=== PATIENT | male | born 1925 | race Caucasian/White ===

== ENCOUNTER 2017-01-24 08:33 | Emergency (ER) | payer OTHER ==
[~2017-01-24] VITALS: Ht 177.8 cm; Wt 68.3 kg
[2017-01-24 08:33] VITALS: TEMP 36.4; Ht 177.8 cm; Wt 68.3 kg
[~2017-01-24 08:33] MED LIST: ASPI81TA21 PO; CIPR-255 PO; CLC100X PO; DBT/25 PO; DIVA125C PO; DONE10TA12 PO; GLY/5 PO; HYDR-389 PO; LANS30CA63 PO; MEDR150I IM; MEMA10TA PO; POLY335040 PO; SODIENE PR; TRAM-453 PO; TRAZ1TAB8 PO; TYLOTC500 PO
[2017-01-24] MEDS ORDERED: POTA10CA28 PO (09:11)
[2017-01-24] MEDS ORDERED: INSU100I SQ (09:11)
[2017-01-24] MEDS ORDERED: INSDGI SC (09:11)
[2017-01-24] MEDS ORDERED: PRLSR20 PO (09:11)
[2017-01-24] MEDS ORDERED: MELATAB2 PO (09:11)
[2017-01-24] MEDS ORDERED: [UNRECOGNIZED DRUG - CODE] PO (09:11)
[2017-01-24] MEDS ORDERED: [UNRECOGNIZED DRUG - CODE] TOP (09:11)
[2017-01-24] MEDS ORDERED: TRAZ50TA35 PO (09:11)
[2017-01-24] MEDS ORDERED: SENN-61 PO (09:11)
--- NOTE | 2017-01-24 10:17 | DIAGNOSTIC IMAGING REPORT ---
CHEST ONE VIEW PORTABLE CLINICAL HISTORY: Fall. COMPARISON STUDY: Radiograph June 23, 2012. FINDINGS: There is no pneumothorax or pleural effusion. Lung volumes are diminished. This is unchanged. Mild motion artifact is noted. There is no lobar consolidation. A metallic density projects over the left upper chest. This is unchanged. IMPRESSION: No acute cardiopulmonary findings. Electronically signed by: Noel Rowland M.D. 01/24/2017 10:15 AM Dictated Date/Time: 01/24/2017 10:14 AM
[2017-01-24 10:26] LABS: BASO % 0.3 %; BASO ABS # 0.03 K/uL (0-0.2); COMPLETE YES; EOS % 0.5 %; HEMATOCRIT 47.5 % (42-52); IG% 0.3 %; LYMPH % 12.9 %; MEAN CELL VOLUME 91.9 fL (80-100); MEAN CORPUSCULAR HEMOGLOBIN 28.8 pg (25-34); MEAN CORPUSCULAR HGB CONC 31.4 g/dl (32-36); MEAN PLATELET VOLUME 10.1 fL (7.4-10.4); MONO % 5.9 %; NEUT % 80.1 %; PLATELET COUNT 256 K/uL (130-400); RED BLOOD COUNT 5.17 M/uL (4.7-6.1); WHITE BLOOD COUNT 11.61 K/uL (4.8-10.8)
[2017-01-24 10:27] LABS: URINE APPEARANCE CLEAR (CLEAR); URINE BILIRUBIN NEG (NEG); URINE COLOR YELLOW; URINE EPITHELIAL CELL AUTO 0-5 /lpf (0-5); URINE NITRITE NEG (NEG); URINE SPECIFIC GRAVITY 1.012 (1.000-1.030); UROBILINOGEN NEG (NEG)
[2017-01-24 10:28] LABS: MANUAL MICROSCOPIC REQUIRED? NO; REVIEW REQ? NO
[2017-01-24 10:44] LABS: ALT/SGPT 23 U/L (12-78); AST/SGOT 43 U/L (15-37); BLOOD UREA NITROGEN 30 mg/dl (7-18); BUN/CREATININE RATIO 22.7 (10-20); CALCIUM 9.3 mg/dl (8.5-10.1); CARBON DIOXIDE 26 mmol/L (21-32); CHLORIDE 107 mmol/L (98-107); GLUCOSE 141 mg/dl (70-99); POTASSIUM 4.7 mmol/L (3.5-5.1); SODIUM 140 mmol/L (136-145)
[2017-01-24 10:47] LABS: ALKALINE PHOSPHATASE 88 U/L (45-117)
--- NOTE | 2017-01-24 12:07 | DIAGNOSTIC IMAGING REPORT ---
CT SCAN OF THE BRAIN WITHOUT IV CONTRAST CLINICAL HISTORY: Fall. COMPARISON STUDY: CT the brain dated 06/23/12. TECHNIQUE: Unenhanced axial CT scan of the brain is performed from the vertex to the skull base. CT DOSE: 614.27 mGy.cm FINDINGS: Brain parenchyma: There are age-related involutional changes noting moderate subcortical and periventricular microangiopathic change. There is no hemorrhage, mass effect, or evidence of acute territorial ischemia by CT criteria. A chronic lacunar infarct is noted in the right thalamus. Koehler-white matter is preserved. No extra-axial fluid collection is seen. Ventricles, sulci, cisterns: Prominent secondary to involutional change. Intracranial vasculature: There is atherosclerotic calcification of the cavernous carotid and vertebral arteries. Calvarium: The skeletal structures are osteopenic. There is no depressed calvarial fracture. Sinuses and mastoids: Moderate mucosal thickening is seen within the maxillary antra. Mild mucosal thickening is seen in the left frontal and ethmoid sinuses. The mastoid air cells are underpneumatized. Orbits: The bony orbits are grossly intact. There are bilateral ocular lens implants. IMPRESSION: Senescent changes as above no hemorrhage, mass effect, or evidence of acute territorial ischemia by CT criteria. Electronically signed by: Anthony Li M.D. 01/24/2017 10:28 AM Dictated Date/Time: 01/24/2017 10:26 AM
[2017-01-24 13:45] VITALS: BP 125/83; PULSE 82; O2SAT 98
--- NOTE | 2017-01-24 15:14 | EMERGENCY ROOM VISIT NOTE ---
History Report prepared by Leobardo: Em Garcia Under the Supervision of: Dr. Lonny Farias D.O. First contact with patient: 09:33 Chief Complaint: OTHER COMPLAINT History of Present Illness The patient is a 89 year old male who presents to the Emergency Room with complaints of constant weakness beginning FLAKER TENDER. The patient is a resident at [facility]. Per staff, the patient is non-verbal at baseline. He required two people to help him out of bed this morning instead of the usual one person. Staff also reports a fall occurring yesterday. The patient acted normally after the incident. He has had rhinorrhea for the past 24 hours but has been afebrile with a T-max of 99.2. The HPI is limited secondary to the patient's mental status. Source of History: detention notes History Limited By: AMS Onset: FLAKER TENDER Position: other (global) Quality: other (weakness) Timing: constant Associated Symptoms: No fevers Review of Systems ROS is limited secondary to the patient's mental status. Past Medical & Surgical Medical Problems: (1) Benign hypertension (2) Diabetes mellitus (3) Heart disease (4) Ulcer Family History Non-pertinent due to advanced age. Social History Smoking Status: Unknown if Ever Smoked Alcohol Use: none Housing Status: detention Occupation Status: retired Current/Historical Medications Scheduled Acetaminophen (Tylenol), 500-1,000 MG PO Q6HR PRN Aspirin Enteric Coated (Ecotrin Or Generic), 81 MG PO DAILY Donepezil Hydrochloride (Aricept), 10 MG PO HS Insulin Glargine (Lantus), 28 UNITS SC HS Insulin Lispro (Human) (Humalog), 1 DOSE SQ UD Melatonin (Melatonin Maximum Strengt), 5 MG PO HS Memantine (Namenda), 5 ML PO BID Menthol-Zinc Oxide (Caladrox 0.44-20 %), 1 APPLN TOP DAILY Omeprazole (Prilosec), 20 MG PO DAILY Potassium Chloride (Micro-K Ext Rel), 10 MEQ PO DAILY Trazodone Hcl (Trazodone), 25 MG PO HS Miscellaneous Medications Senna (Senokot), 1 TAB PO Allergies Coded Allergies: Haloperidol (Verified Allergy, Unknown, unknown, 01/24/17) [place] Physical Exam Vital Signs Date Time Temp Pulse Resp B/P (MAP) Pulse Ox O2 Delivery O2 Flow Rate FiO2 9/5/17 13:45 82 20 125/83 98 Room Air 01/24/17 10:37 51 12 128/64 97 Room Air 01/24/17 08:58 56 01/24/17 08:33 36.4 67 18 173/92 96 Room Air Physical Exam GENERAL: alert, sitting up in bed, disheveled, chronically ill appearing, no distress HEAD: NC/AT. EYE EXAM: normal conjunctiva, PERRL and EOM's grossly intact OROPHARYNX: no exudate, no erythema, lips, buccal mucosa, and tongue normal and mucous membranes are moist NECK: supple, no nuchal rigidity, no adenopathy, non-tender LUNGS: Clear to auscultation. Normal chest wall mechanics HEART: no murmurs, S1 normal and S2 normal ABDOMEN: abdomen soft, non-tender, normo-active bowel sounds, no masses, no rebound or guarding. SKIN: no rashes and no bruising UPPER EXTREMITIES: upper extremities are grossly normal. LOWER EXTREMITIES: No pitting edema. NEURO EXAM: Alert, mumbles, does not follow commands, cranial nerves II-XII grossly intact. Moves upper extremities with mild tremors, equal strength in lower extremities. Medical Decision & Procedures ER Provider Diagnostic Interpretation: Radiology results as stated below per my review and the radiologist's interpretation: CT SCAN OF THE BRAIN WITHOUT IV CONTRAST CLINICAL HISTORY: Fall. COMPARISON STUDY: CT the brain dated 06/23/12. TECHNIQUE: Unenhanced axial CT scan of the brain is performed from the vertex to the skull base. CT DOSE: 614.27 mGy.cm FINDINGS: Brain parenchyma: There are age-related involutional changes noting moderate subcortical and periventricular microangiopathic change. There is no hemorrhage, mass effect, or evidence of acute territorial ischemia by CT criteria. A chronic lacunar infarct is noted in the right thalamus. Koehler-white matter is preserved. No extra-axial fluid collection is seen. Ventricles, sulci, cisterns: Prominent secondary to involutional change. Intracranial vasculature: There is atherosclerotic calcification of the cavernous carotid and vertebral arteries. Calvarium: The skeletal structures are osteopenic. There is no depressed calvarial fracture. Sinuses and mastoids: Moderate mucosal thickening is seen within the maxillary antra. Mild mucosal thickening is seen in the left frontal and ethmoid sinuses. The mastoid air cells are underpneumatized. Orbits: The bony orbits are grossly intact. There are bilateral ocular lens implants. IMPRESSION: Senescent changes as above no hemorrhage, mass effect, or evidence of acute territorial ischemia by CT criteria. Electronically signed by: Anthony Li M.D. 01/24/2017 10:28 AM Dictated Date/Time: 01/24/2017 10:26 AM CHEST ONE VIEW PORTABLE CLINICAL HISTORY: Fall. COMPARISON STUDY: Radiograph June 23, 2012. FINDINGS: There is no pneumothorax or pleural effusion. Lung volumes are diminished. This is unchanged. Mild motion artifact is noted. There is no lobar consolidation. A metallic density projects over the left upper chest. This is unchanged. IMPRESSION: No acute cardiopulmonary findings. Electronically signed by: Noel Rowland M.D. 01/24/2017 10:15 AM Dictated Date/Time: 01/24/2017 10:14 AM Laboratory Results 01/24/17 09:50 Red Blood Count 5.17, Mean Corpuscular Volume 91.9, Mean Corpuscular Hemoglobin 28.8, Mean Corpuscular Hemoglobin Concent 31.4, Mean Platelet Volume 10.1, Neutrophils (%) (Auto) 80.1, Lymphocytes (%) (Auto) 12.9, Monocytes (%) (Auto) 5.9, Eosinophils (%) (Auto) 0.5, Basophils (%) (Auto) 0.3, Neutrophils # (Auto) 9.30, Lymphocytes # (Auto) 1.50, Monocytes # (Auto) 0.68, Eosinophils # (Auto) 0.06, Basophils # (Auto) 0.03 01/24/17 09:50 Test 01/24/17 09:50 01/24/17 10:00 White Blood Count 11.61 K/uL (4.8-10.8) Red Blood Count 5.17 M/uL (4.7-6.1) Hemoglobin 14.9 g/dL (14.0-18.0) Hematocrit 47.5 % (42-52) Mean Corpuscular Volume 91.9 fL (80-100) Mean Corpuscular Hemoglobin 28.8 pg (25-34) Mean Corpuscular Hemoglobin Concent 31.4 g/dl (32-36) Platelet Count 256 K/uL (130-400) Mean Platelet Volume 10.1 fL (7.4-10.4) Neutrophils (%) (Auto) 80.1 % Lymphocytes (%) (Auto) 12.9 % Monocytes (%) (Auto) 5.9 % Eosinophils (%) (Auto) 0.5 % Basophils (%) (Auto) 0.3 % Neutrophils # (Auto) 9.30 K/uL (1.4-6.5) Lymphocytes # (Auto) 1.50 K/uL (1.2-3.4) Monocytes # (Auto) 0.68 K/uL (0.11-0.59) Eosinophils # (Auto) 0.06 K/uL (0-0.5) Basophils # (Auto) 0.03 K/uL (0-0.2) RDW Standard Deviation 45.1 fL (36.4-46.3) RDW Coefficient of Variation 13.5 % (11.5-14.5) Immature Granulocyte % (Auto) 0.3 % Immature Granulocyte # (Auto) 0.04 K/uL (0.00-0.02) Anion Gap 7.0 mmol/L (3-11) Est Creatinine Clear Calc Drug Dose 37.2 ml/min Estimated GFR () 56.1 Estimated GFR (Non- 48.4 BUN/Creatinine Ratio 22.7 (10-20) Calcium Level 9.3 mg/dl (8.5-10.1) Total Bilirubin 0.5 mg/dl (0.2-1) Direct Bilirubin < 0.1 mg/dl (0-0.2) Aspartate Amino Transf (AST/SGOT) 43 U/L (15-37) Alanine Aminotransferase (ALT/SGPT) 23 U/L (12-78) Alkaline Phosphatase 88 U/L (45-117) Total Protein 8.0 gm/dl (6.4-8.2) Albumin 3.6 gm/dl (3.4-5.0) Urine Color YELLOW Urine Appearance CLEAR (CLEAR) Urine pH 6.0 (4.5-7.5) Urine Specific [place] 1.012 (1.000-1.030) Urine Protein NEG (NEG) Urine Glucose (UA) NEG (NEG) Urine Ketones NEG (NEG) Urine Occult Blood 1+ (NEG) Urine Nitrite NEG (NEG) Urine Bilirubin NEG (NEG) Urine Urobilinogen NEG (NEG) Urine Leukocyte Esterase NEG (NEG) Urine WBC (Auto) 0 /hpf (0-5) Urine RBC (Auto) 5-10 /hpf (0-4) Urine Hyaline Casts (Auto) 0 /lpf (0-5) Urine Epithelial Cells (Auto) 0-5 /lpf (0-5) Urine Bacteria (Auto) NEG (NEG) Laboratory results per my review. ED Course ED COURSE: Vital signs were reviewed and showed hypertensive. The patients medical record was reviewed The above diagnostic studies were performed and reviewed. ED treatments and interventions as stated above. 0933: The patient was evaluated in room A2. A complete history and physical examination was performed. 1223: Upon reevaluation, the patient is at his baseline. I discussed my findings with an MACHINIST LINOTYPE from [facility] and they understand and agree with the treatment plan. The patient will return to [facility]. Based on the patients age, coexisting illnesses, exam and lab findings the decision to treat as an outpatient was made. The patient remained stable while under my care. The patient appeared well at the time of discharge. Medical Decision Differential Diagnosis includes but is not limited to dehydration, stroke, anemia, hypoglycemia, hyponatremia, hypernatremia, urinary tract infection, pneumonia, bronchitis, sepsis, gastroenteritis, additional abdominal pathology, metabolic abnormalities and infections. Patient is an 89-year-old male who is referred in at his baseline for fall yesterday as he required to assist this morning which is abnormal for him. He is reportedly at his baseline. CT head was negative along with blood work was unremarkable. CBC on BMP, LFTs and bilirubin was unremarkable. UA was negative. Chest x-ray shows no infection. Vitals were fairly unremarkable. Patient was updated myself and patient was discharged back to detention as baseline per report. Medication Reconcilliation Current Medication List: was personally reviewed by me Blood Pressure Screening Patient's blood pressure: Elevated blood pressure Blood pressure disposition: Elevated BP felt to be situational Impression Primary Impression: Weak Scribe Attestation The scribe's documentation has been prepared under my direction and personally reviewed by me in its entirety. I confirm that the note above accurately reflects all work, treatment, procedures, and medical decision making performed by me. Departure Information Dispostion Home / Self-Care Referrals Lyndon De M.D. (PCP) Forms HOME CARE DOCUMENTATION FORM, IMPORTANT VISIT INFORMATION, WORK / SCHOOL INSTRUCTIONS Patient Instructions ED Weakness Nimisha REID [facility] Additional Instructions Please follow up with your primary care doctor or if you are a student, [facility] with in the next 24 hours. Any worsening of your symptoms, please return to the ED immediately. This includes any fevers greater than 100.4, worsening pain, chest pain, shortness breath, persistent nausea, vomiting, unable to eat or drink, or any other concerning signs or symptoms from your standpoint.
== END 2017-01-24 14:35 | disposition home or self-care (01) ==
LOC: EDBD 08:33 → C.EDA 08:33
DX: R53.1 Weakness (principal); I10 Essential (primary) hypertension; E11.9 Type 2 diabetes mellitus without complications; I51.9 Heart disease, unspecified; Z79.4 Long term (current) use of insulin; Z79.82 Long term (current) use of aspirin; Z79.899 Other long term (current) drug therapy; Z88.8 Allergy status to other drugs, medicaments and biological substances

== ENCOUNTER 2017-04-08 12:46 | Emergency (ER) | payer OTHER ==
[~2017-04-08] VITALS: Ht 175.3 cm; Wt 71.9 kg
[~2017-04-08 12:46] MED LIST changes: -CIPR-255 PO; -CLC100X PO; -DBT/25 PO; -DIVA125C PO; -GLY/5 PO; -HYDR-389 PO; +INSDGI SC; +INSU100I SQ; -LANS30CA63 PO; -MEDR150I IM; +MELATAB2 PO; -MEMA10TA PO; -POLY335040 PO; +POTA10CA28 PO; +PRLSR20 PO; +SENN-61 PO; -SODIENE PR; -TRAM-453 PO; -TRAZ1TAB8 PO; +TRAZ50TA35 PO; +[UNRECOGNIZED DRUG - CODE] PO; +[UNRECOGNIZED DRUG - CODE] TOP
[2017-04-08 12:53] VITALS: TEMP 36.4; Ht 175.3 cm; Wt 71.9 kg
--- NOTE | 2017-04-08 13:06 | EMERGENCY ROOM VISIT NOTE ---
History Report prepared by Leobardo: Navjot Acosta Under the Supervision of: Dr. Roberto Carlos Flores M.D. First contact with patient: 12:53 Chief Complaint: HEAD INJURY (MINOR) Stated Complaint: FALL History of Present Illness The patient is a 89 year old male who presents to the Emergency Room with complaints of a sudden fall occurring prior to arrival. Per the nursing staff, the fall was unwitnessed, and the patient is currently on aspirin. Per the nursing staff, the patient is at his baseline. History is limited secondary to dementia/aphasia. Source of History: nursing staff History Limited By: dementia, aphasia Onset: prior to arrival Position: other (global) Quality: other (fall) Timing: other (sudden) Review of Systems History is limited secondary to dementia/aphasia Past Medical & Surgical Medical Problems: (1) Benign hypertension (2) Diabetes mellitus (3) Heart disease (4) Ulcer Old medical records were reviewed. Nurse's notes were reviewed and I agree with. Social History Smoking Status: Unknown if Ever Smoked Alcohol Use: none Housing Status: correction Occupation Status: retired Current/Historical Medications Scheduled Acetaminophen (Tylenol), 500-1,000 MG PO Q6HR PRN Aspirin Enteric Coated (Ecotrin Or Generic), 81 MG PO DAILY Donepezil Hydrochloride (Aricept), 10 MG PO HS Insulin Glargine (Lantus), 28 UNITS SC HS Insulin Lispro (Human) (Humalog), 1 DOSE SQ UD Melatonin (Melatonin Maximum Strengt), 5 MG PO HS Memantine HCl (Memantine Hydrochloride), 5 ML PO BID Omeprazole (Prilosec), 20 MG PO DAILY Potassium Chloride (Micro-K Ext Rel), 10 MEQ PO DAILY Miscellaneous Medications Senna (Senokot), 1 TAB PO Allergies Coded Allergies: Haloperidol (Verified Allergy, Unknown, unknown, 04/08/17) [place] Physical Exam Vital Signs Date Time Temp Pulse Resp B/P (MAP) Pulse Ox O2 Delivery O2 Flow Rate FiO2 04/08/17 16:06 50 16 174/74 99 04/08/17 15:29 50 20 166/67 96 Room Air 04/08/17 14:00 56 14 118/70 98 04/08/17 12:53 36.4 59 16 153/82 100 Room Air 04/08/17 12:53 14 Physical Exam General: Non-ill appearing older male who has baseline dementia/aphasia. Eyes are open. Follows some commands. Mostly non-verbal. HEENT: Normal cephalic atraumatic. Pupils are equal round and reactive to light. Extraocular movements are intact. Oropharynx is pink with moist mucous membranes. No swelling of the mouth lips or tongue. Neck: Supple with a midline trachea. No meningeal signs or stiffness, no JVD or bruits. No Stridor. Chest: Clear to auscultation bilaterally. No wheezes or rhonchi. No increased work of breathing. Heart: regular rate and rhythm. Abdomen: Soft nontender, nondistended without rebound guarding or rigidity. Extremities: No cyanosis clubbing or edema. No calf tenderness or assymetry Spine/Back. Non tender to palpation. No CVA tenderness Skin: Good turgor without rashes. Neurologic exam: Cranial nerves two through 12 are intact. Motor and sensation are intact and symmetrical throughout. Medical Decision & Procedures ER Provider Diagnostic Interpretation: Radiology results as stated below per my review and radiologist interpretation: HEAD CT NONCONTRAST CT DOSE: 687.98 mGy.cm HISTORY: Fall. eval for trauma TECHNIQUE: Multiaxial CT images of the head were performed without the use of intravenous contrast. Automated exposure control was utilized for this study. A dose lowering technique was utilized adhering to the principles of ALARA. Comparison: Head CT 01/24/2017. Findings: Improved aeration within the paranasal sinuses. Complete opacification of the mastoid air cells, unchanged. The calvarium and skull base are intact. There is no mass, hematoma, midline shift, acute infarct. White matter hypodensity is nonspecific but suggestive of microvascular ischemic change. The ventricles and sulci demonstrate mild age-related involutional changes. Impression: No acute intracranial abnormality. Atrophy and microvascular ischemic changes. Improved aeration within the paranasal sinuses with persistent bilateral mastoid effusions. Electronically signed by: Pola Garza M.D. 04/08/2017 3:03 PM Dictated Date/Time: 04/08/2017 3:00 PM ED Course 1253: Past medical records reviewed. The patient was evaluated in room A10, and a complete history and physical examination were performed. 1317: I reevaluated the patient, and he was resting comfortably. 1607: Upon reevaluation, the patient is resting comfortably. I discussed the results and treatment plan with him. The patient was discharged home. Medical Decision Differentials include, but are not limited to; head injury, syncope, electrolyte or metabolic abnormality This patient comes in as described above He does have a history of dementia and aphasia and apparently hit his head. There is really no external signs of trauma. It is difficult to do a reliable neurologic exam on him secondary to his baseline status. He does appear to be as reported baseline however and He seems in no distress and is watching TV. I did a CAT scan of his head. It was unremarkable. He seems have no other complaints. He will be discharged back to correction and return if any new problems or concerns. Medication Reconcilliation Current Medication List: was personally reviewed by me Blood Pressure Screening Patient's blood pressure: Elevated blood pressure Blood pressure disposition: Elevated BP felt to be situational Impression Primary Impression: Closed head injury Scribe Attestation The scribe's documentation has been prepared under my direction and personally reviewed by me in its entirety. I confirm that the note above accurately reflects all work, treatment, procedures, and medical decision making performed by me. Departure Information Dispostion Home / Self-Care Referrals Lyndon eD M.D. (PCP) Forms HOME CARE DOCUMENTATION FORM, IMPORTANT VISIT INFORMATION Patient Instructions My [facility] [place] Additional Instructions Rest Return if: Worsening of symptoms, not acting like self, any new problems or concerns Follow-up with his doctor Monday for recheck
[2017-04-08] MEDS ORDERED: [UNRECOGNIZED DRUG - CODE] PO (13:33)
--- NOTE | 2017-04-08 15:04 | DIAGNOSTIC IMAGING REPORT ---
HEAD CT NONCONTRAST CT DOSE: 687.98 mGy.cm HISTORY: Fall. eval for trauma TECHNIQUE: Multiaxial CT images of the head were performed without the use of intravenous contrast. Automated exposure control was utilized for this study. A dose lowering technique was utilized adhering to the principles of ALARA. Comparison: Head CT 01/24/2017. Findings: Improved aeration within the paranasal sinuses. Complete opacification of the mastoid air cells, unchanged. The calvarium and skull base are intact. There is no mass, hematoma, midline shift, acute infarct. White matter hypodensity is nonspecific but suggestive of microvascular ischemic change. The ventricles and sulci demonstrate mild age-related involutional changes. Impression: No acute intracranial abnormality. Atrophy and microvascular ischemic changes. Improved aeration within the paranasal sinuses with persistent bilateral mastoid effusions. Electronically signed by: Pola Garza M.D. 04/08/2017 3:03 PM Dictated Date/Time: 04/08/2017 3:00 PM
[2017-04-08 16:06] VITALS: BP 174/74; PULSE 50; O2SAT 99
== END 2017-04-08 16:07 | disposition home or self-care (01) ==
LOC: EDBD 12:46 → C.EDA 12:49
DX: S09.90XA Unspecified injury of head, initial encounter (principal); W19.XXXA Unspecified fall, initial encounter; Y92.129 Unspecified place in nursing home as the place of occurrence of the external cause; I11.9 Hypertensive heart disease without heart failure; E11.9 Type 2 diabetes mellitus without complications; F03.90 Unspecified dementia, unspecified severity, without behavioral disturbance, psychotic disturbance, mood disturbance, and anxiety; R47.01 Aphasia; Z79.4 Long term (current) use of insulin; Z79.82 Long term (current) use of aspirin; Z79.899 Other long term (current) drug therapy